=== PATIENT | female | born 1940 | race Caucasian/White ===

== ENCOUNTER 2019-11-25 09:00 | Outpatient (CLI) | payer MEDICARE, OTHER ==
--- NOTE | 2019-11-25 09:55 | ULT ---
Exam: Right upper quadrant ultrasound: HISTORY: Epigastric abdominal pain. Chronic diarrhea for 3 years with right upper quadrant/epigastric abdomina l pain for 2 months. COMPARISON: None FINDINGS: Liver: Increased in echogenicity likely attributable to diffuse fatty infiltration. Gallbladder: No evidence of gallbladder calculi, gallbladder wall thickening, or pericholecystic flui d. Common bile duct: The common duct is normal in caliber measuring 0.3 cm in diameter. Pancreas: Limited visualized portions of the pancreas demonstrate a normal sonographic appearance. Right kidney: Right kidney demonstrates a normal sonographic appearance. The right kidney measures 1 0 cm in length. IVC: The visualized IVC demonstrates a normal sonographic appearance. IMPRESSION: 1. Fatty infiltration the liver. 2. No gallbladder calculi are visualized, and the common duct is normal in caliber.
== END 2019-11-25 09:01 | disposition home or self-care (01) ==
LOC: SCSULT 09:00
PROVIDERS: ATTEND Internal Medicine Gastroenterology
DX: R10.13 Epigastric pain (principal); R19.7 Diarrhea, unspecified; K76.0 Fatty (change of) liver, not elsewhere classified
CPT/HCPCS: 76705

== ENCOUNTER 2019-12-02 09:29 | Outpatient (CLI) | payer MEDICARE, OTHER ==
[2019-12-02] MEDS ORDERED: Iopamidol 370 76% 100 ML VIAL ONE (09:53)
--- NOTE | 2019-12-02 10:53 | CT ---
EXAM: CT angiogram abdomen with IV contrast and 3-D reconstructions PROVIDED CLINICAL HISTORY: Epigastric abdominal pain. COMPARISON: CT thorax 06/06/2017 FINDINGS: A 6 mm pleural-based nodular density is seen at the right lung base also present on prior CT thorax i n 2017. There is a very tiny less than 3 mm pulmonary nodule left lung base. There are linear densities also seen at each lung base which may represent minimal atelectasis and/or scarring. Partial visualization of bilateral breast prostheses are noted. Again noted is diminished attenuation of the liver suggesting diffuse fatty infiltration. A 9 mm fluid attenuation lesion is seen superior pole left kidney compatible with a cyst. Subcentimet er too small to characterize hypodense lesions are seen in the superior pole and inferior pole right kidney. The spleen, pancreas, and parotid glands demonstrate a normal CT appearance for arterial phase of janet ging. Atherosclerotic plaques and calcifications are seen in the abdominal aorta. Abdominal aorta is normal in caliber without evidence of an aortic dissection. The celiac, superior mesenteric, and inferior mesenteric arteries are patent. Single patent bilateral renal arteries are visualized. No free fluid, fluid collection, or lymphadenopathy is seen in the abdomen. Degenerative changes are seen in the spine greatest at the L4-5 level. IMPRESSION: 1. Patent mesenteric vessels. 2. Pleural-based nodular density right lung base also seen on prior study. 3. Fatty infiltration liver. 4. Small left renal cyst with tiny too small to characterize hypodense lesions superior pole and infe rior pole right kidney.
== END 2019-12-02 09:30 | disposition home or self-care (01) ==
LOC: CT 09:29
PROVIDERS: ATTEND Internal Medicine Gastroenterology
DX: R10.13 Epigastric pain (principal); R19.7 Diarrhea, unspecified; J98.4 Other disorders of lung; K76.0 Fatty (change of) liver, not elsewhere classified; N28.1 Cyst of kidney, acquired
CPT/HCPCS: 74175; 82565; Q9967

== ENCOUNTER 2019-12-11 11:31 | Outpatient (CLI) | payer MEDICARE, OTHER ==
--- NOTE | 2019-12-11 15:18 | NM ---
HEPATOBILIARY SCAN: HISTORY: Unspecified abdominal pain, epigastric pain. No gallstones on ultrasound of 11/25/2019. RADIOPHARMACEUTICAL: 5.5 mCi Technetium 99m-mebrofenin injected intravenously. FINDINGS: There is good tracer extraction by the liver with prompt excretion into the biliary tract and small b owel loops and normal filling of the gallbladder. The calculated gallbladder ejection fraction following an oral fatty meal measures 81%. IMPRESSION: Normal exam. POS: [id number]
== END 2019-12-11 11:32 | disposition home or self-care (01) ==
LOC: NM 11:31
PROVIDERS: ATTEND Internal Medicine Gastroenterology
DX: R10.9 Unspecified abdominal pain (principal)
CPT/HCPCS: 78227; A9537

== ENCOUNTER 2022-08-04 11:53 | Outpatient (CLI) | payer MEDICARE, OTHER ==
[2022-08-04] MEDS ORDERED: Iopamidol 370 76% 100 ML VIAL ONE (15:17)
== END 2022-08-04 11:54 | disposition home or self-care (01) ==
LOC: CT 11:53
PROVIDERS: ATTEND Internal Medicine Gastroenterology
DX: K58.0 Irritable bowel syndrome with diarrhea (principal); R19.5 Other fecal abnormalities; K21.9 Gastro-esophageal reflux disease without esophagitis; I70.90 Unspecified atherosclerosis; K57.30 Diverticulosis of large intestine without perforation or abscess without bleeding; K76.0 Fatty (change of) liver, not elsewhere classified; N28.1 Cyst of kidney, acquired; N28.9 Disorder of kidney and ureter, unspecified; Z90.710 Acquired absence of both cervix and uterus
CPT/HCPCS: 74174; 82565